=== PATIENT | male | born 1970 | race Caucasian/White ===

== ENCOUNTER → 2024-09-08 | Outpatient (CLI) | payer BC, SELFPAY ==
[2024-09-08 10:24] LABS: Basophils # (Auto) 0.1 Thou/mm3 (0.0-0.2); Basophils % (Auto) 1 % (0-2.5); Eosinophils # (Auto) 0.1 Thou/mm3 (0.0-0.5); Eosinophils % (Auto) 2 % (0-10); Hematocrit 42.4 % (41.0-53.0); Hemoglobin 15.3 g/dL (13.5-16.0); Immature Granulocytes % (Auto) 0 % (0-0); Immature Granulocytes Auto 0.02 Thou/mm3 (0.00-0.00); Lymphocytes # (Auto) 1.8 Thou/mm3 (1.0-4.8); Lymphocytes % (Auto) 26 % (10-50); Mean Corpuscular HGB Conc 36.1 g/dl (31.0-37.0); Mean Corpuscular Volume 86 fL (80-100); Monocytes # (Auto) 0.4 Thou/mm3 (0.0-0.8); Monocytes % (Auto) 6 % (0-12); Neutrophils # (Auto) 4.5 Thou/mm3 (1.8-7.7); Neutrophils % (Auto) 65 % (37-80); Nucleated Red Blood Cell % 0 /100 WBC (0); Platelet Count 241 Thou/mm3 (140-440); RDW Standard Deviation 36.9 fL (35.1-43.9); Red Blood Count 4.94 Miln/mm3 (4.50-5.90); White Blood Count 6.9 Thou/mm3 (3.8-10.6)
[2024-09-08 10:58] LABS: PSA Medicare Annual Scrn 0.55 ng/mL (0-4.00)
[2024-09-08 11:54] LABS: Alanine Aminotransferase 33 U/L (10-49); Albumin, Serum 4.7 gm/dL (3.5-5.0); Albumin/Globulin Ratio 1.9 (1.2-2.2); Alkaline Phosphatase 127 U/L (46-116); Anion Gap 12 (7-16); Aspartate Amino Transferase 10 U/L (0-34); BUN/Creatinine Ratio 17 Ratio (12-20); Bilirubin,Total 1.3 mg/dL (0.3-1.2); Blood Urea Nitrogen 24 mg/dL (9-23); Calcium 10.3 mg/dL (8.3-10.6); Calcium (Corrected) 10.3 mg/dL (8.5-10.1); Carbon Dioxide 28.2 mMol/L (20.0-31.0); Cardiac Risk Estimate 4.4 RATIO (4.0-6.7); Chloride 93 mMol/L (98-107); Cholesterol 202 mg/dL (132-200); Creatinine (Component) 1.4 mg/dL (0.6-1.3); Globulin 2.5 gm/dL (2.3-3.5); HDL Cholesterol 46 mg/dL (40-60); Osmolality,Calculated 288 (275-295); Potassium 3.4 mMol/L (3.4-5.1); Sodium 133 mMol/L (136-145); Thyroid Stimulating Hormone 2.23 uIU/mL (0.55-4.78); Total Protein 7.2 gm/dL (5.7-8.2); Triglycerides 443 mg/dL (30-150); eGFR 60 See Note
[2024-09-08 12:07] LABS: Glucose 428 mg/dL (74-106)
[2024-09-09 09:56] LABS: Misc Send Out* See Sep Rpt
== END | disposition home or self-care (01) ==
LOC: COPL 09:25
PROVIDERS: PCP Family Medicine; Referring Provider Nurse Practitioner Family; Visit Provider Nurse Practitioner Family
DX: I10 Essential (primary) hypertension (principal); E78.5 Hyperlipidemia, unspecified; R73.03 Prediabetes; Z12.5 Encounter for screening for malignant neoplasm of prostate
CPT/HCPCS: 36415; 80053; 80061; 83036; 84153; 84443; 85025; G0103

== ENCOUNTER → 2024-09-10 | Outpatient (CLI) | payer BC, SELFPAY ==
[2024-09-10 11:36] LABS: Misc Send Out* See Sep Rpt
[2024-09-10 12:35] LABS: Vitamin D 25 Hydroxy Total 19.6 ng/mL (7.3-40.2)
[2024-09-10 12:43] LABS: Collection Type, Urine Clean Catch; Squamous Epithelial Cell,Urine 0 /hpf (0-5)
[2024-09-10 12:56] LABS: Alanine Aminotransferase 35 U/L (10-49); Albumin, Serum 4.7 gm/dL (3.5-5.0); Alkaline Phosphatase 127 U/L (46-116); Anion Gap 10 (7-16); Aspartate Amino Transferase 15 U/L (0-34); BUN/Creatinine Ratio 13 Ratio (12-20); Bilirubin,Total 1.1 mg/dL (0.3-1.2); Blood Urea Nitrogen 17 mg/dL (9-23); Calcium 9.7 mg/dL (8.3-10.6); Calcium (Corrected) 9.7 mg/dL (8.5-10.1); Carbon Dioxide 28.9 mMol/L (20.0-31.0); Chloride 93 mMol/L (98-107); Creatinine (Component) 1.3 mg/dL (0.6-1.3); Globulin 2.4 gm/dL (2.3-3.5); Magnesium 2.3 mg/dL (1.6-2.6); Osmolality,Calculated 285 (275-295); Potassium 3.3 mMol/L (3.4-5.1); Sodium 132 mMol/L (136-145); Total Protein 7.1 gm/dL (5.7-8.2); eGFR > 60 See Note
[2024-09-10 12:59] LABS: Glucose 438 mg/dL (74-106)
[2024-09-10 13:36] LABS: Bilirubin,Urine Negative (Negative); Blood,Urine Negative (Negative); Clarity,Urine Clear (Clear/Hazy); Color,Urine Lt-Yellow (Lt Yel-Yel); Glucose, Urine 4+ (Negative); Ketones,Urine Negative (Negative); Leukocyte Esterase,Urine Negative (Negative); Nitrite,Urine Negative (Negative); Protein,Urine Negative (Neg - Trace); RBC,Urine 3 /hpf (0-3); Specific Gravity,Urine 1.037 (1.001-1.035); Urobilinogen,Urine Negative mg/dL (0.0-1.0); WBC,Urine 1 /hpf (0-5)
[2024-09-10 13:50] LABS: Creatinine MALB Rnd Ur 60 mg/dL (30-125); Microalbumin, Random Urine < 3 mg/L (0-300)
[2024-09-11 07:54] LABS: Misc Send Out* See Sep Rpt
== END | disposition home or self-care (01) ==
LOC: COPL 11:02
PROVIDERS: PCP Family Medicine; Referring Provider Nurse Practitioner Family; Visit Provider Nurse Practitioner Family
DX: I10 Essential (primary) hypertension (principal); E11.9 Type 2 diabetes mellitus without complications; R79.9 Abnormal finding of blood chemistry, unspecified
CPT/HCPCS: 36415; 80053; 81001; 82043; 82306; 82570; 83036; 83735; 84255; 84590

== ENCOUNTER → 2024-09-14 | Outpatient (CLI) | payer BC, SELFPAY | END | disposition home or self-care (01) | LOC: COPL 09:23 | PROVIDERS: PCP Family Medicine; Referring Provider Nurse Practitioner Family; Visit Provider Nurse Practitioner Family | DX: I10 Essential (primary) hypertension (principal); R73.03 Prediabetes | CPT/HCPCS: 36415; 83036 ==

== ENCOUNTER → 2024-10-19 | Outpatient (CLI) | payer BC, SELFPAY ==
[2024-10-19 10:54] LABS: Glucose Estimated Average 260 mg/dL (80-131); Hemoglobin A1C 10.7 % Hgb (4.8-6.0)
[2024-10-19 11:06] LABS: Alanine Aminotransferase 39 U/L (10-49); Albumin/Globulin Ratio 1.9 (1.2-2.2); Alkaline Phosphatase 87 U/L (46-116); Anion Gap 11 (7-16); Aspartate Amino Transferase 39 U/L (0-34); BUN/Creatinine Ratio 29 Ratio (12-20); Bilirubin,Total 1.2 mg/dL (0.3-1.2); Blood Urea Nitrogen 46 mg/dL (9-23); Calcium 10.6 mg/dL (8.3-10.6); Calcium (Corrected) 10.6 mg/dL (8.5-10.1); Carbon Dioxide 26.8 mMol/L (20.0-31.0); Chloride 101 mMol/L (98-107); Creatinine (Component) 1.6 mg/dL (0.6-1.3); Globulin 2.6 gm/dL (2.3-3.5); Glucose 108 mg/dL (74-106); Osmolality,Calculated 290 (275-295); Potassium 4.1 mMol/L (3.4-5.1); Sodium 139 mMol/L (136-145); Total Protein 7.6 gm/dL (5.7-8.2); eGFR 51 See Note
[2024-10-19 11:12] LABS: Creatinine MALB Rnd Ur 157 mg/dL (30-125); Microalbumin Creat Ratio 2 mg/gCrea (<30); Microalbumin, Random Urine 3 mg/L (0-300)
== END | disposition home or self-care (01) ==
LOC: COPL 09:25
PROVIDERS: PCP Nurse Practitioner Family; Referring Provider Nurse Practitioner Family; Visit Provider Nurse Practitioner Family
DX: E11.9 Type 2 diabetes mellitus without complications (principal); I10 Essential (primary) hypertension
CPT/HCPCS: 36415; 80053; 82043; 82570; 83036

== ENCOUNTER 2024-10-24 15:40 | Inpatient (IN) | payer BC, SELFPAY ==
[2024-10-24] VITALS (9 sets, daily range): BP systolic 87–158; BP diastolic 53–95; PULSE 71–98; RESP 12–22; TEMP 36.6–36.8; O2SAT 97–100; BMI 50.3
--- NOTE | 2024-10-24 16:07 | EKG_ITS ---
[facility] Test Date: 2024-10-24 Pat Name: PORSCHE ANTHONY Department: Room: - Gender: Male Orientor: : 1970 Requested By: Jack Mobley (NAOMI) Order Number: [id number] Reading MD: Jack Mobley (DOBIE MAN) Measurements Intervals [place] Rate: 79 P: 37 KS: 165 QRS: 13 QRSD: 93 T: 20 QT: 373 QTc: 428 Interpretive Statements SINUS RHYTHM No previous ECG available for comparison /store/S0/[id number]/ecg/[id number].pdf
[2024-10-24] MEDS: SODIUM CHLORIDE 0.9% 1000 ML 1,000 ML 999 ML IV ×2 (16:28→17:40)
[2024-10-24 16:31] LABS: Basophils # (Auto) 0.1 Thou/mm3 (0.0-0.2); Basophils % (Auto) 1 % (0-2.5); Eosinophils % (Auto) 0 % (0-10); Hematocrit 35.5 % (41.0-53.0); Hemoglobin 12.8 g/dL (13.5-16.0); Immature Granulocytes % (Auto) 1 % (0-0); Immature Granulocytes Auto 0.06 Thou/mm3 (0.00-0.00); Lymphocytes # (Auto) 1.4 Thou/mm3 (1.0-4.8); Lymphocytes % (Auto) 13 % (10-50); Mean Corpuscular HGB Conc 36.1 g/dl (31.0-37.0); Mean Corpuscular Hemoglobin 30.8 pg (25.0-35.0); Mean Corpuscular Volume 85 fL (80-100); Monocytes # (Auto) 0.9 Thou/mm3 (0.0-0.8); Monocytes % (Auto) 8 % (0-12); Neutrophils # (Auto) 8.4 Thou/mm3 (1.8-7.7); Neutrophils % (Auto) 78 % (37-80); Nucleated Red Blood Cell % 0 /100 WBC (0); Platelet Count 279 Thou/mm3 (140-440); RDW Standard Deviation 39.8 fL (35.1-43.9); Red Blood Count 4.16 Miln/mm3 (4.50-5.90); White Blood Count 10.8 Thou/mm3 (3.8-10.6)
[2024-10-24 16:43] LABS: INR 1.1 (0.9-1.3); Partial Thromboplastin Time 26.2 Seconds (22.0-36.0); Prothrombin Time 12.1 Seconds (9.0-12.2)
[2024-10-24 16:47] LABS: Alanine Aminotransferase 36 U/L (10-49); Albumin, Serum 5.1 gm/dL (3.5-5.0); Albumin/Globulin Ratio 1.7 (1.2-2.2); Alkaline Phosphatase 82 U/L (46-116); Anion Gap 14 (7-16); Aspartate Amino Transferase 29 U/L (0-34); BUN/Creatinine Ratio 13 Ratio (12-20); Blood Urea Nitrogen 69 mg/dL (9-23); Calcium 10.7 mg/dL (8.3-10.6); Calcium (Corrected) 10.7 mg/dL (8.5-10.1); Chloride 100 mMol/L (98-107); Creatinine (Component) 5.2 mg/dL (0.6-1.3); Estimated Creatinine Clearance 22.5 mL/min (>60); Glucose 123 mg/dL (74-106); Magnesium 1.9 mg/dL (1.6-2.6); Osmolality,Calculated 294 (275-295); Potassium 3.6 mMol/L (3.4-5.1); Sodium 137 mMol/L (136-145); Total Protein 8.1 gm/dL (5.7-8.2); Troponin I < 0.020 ng/mL (0.0-0.045); eGFR 12 See Note
[2024-10-24 17:09] LABS: B-Type Natriuretic Peptide < 20 pg/mL (0-100)
--- NOTE | 2024-10-24 17:24 | XR_ITS ---
Examination: CT brain head without contrast. 2-D sagittal coronal reconstructions Date and time of exam:October at 02 hours Indications: Altered mental status headache today CTDI: vol (mGy):63.1 DLP: (mGycm):1398 Technique: Multiple CT axial sections of the brain have been obtained, 5 mm slice thickness. Contrast has not been administered. 2-D sagittal, coronal reconstructions have been obtained Low dose protocols were performed. One or more of the following dose reduction techniques were used; automated exposure control, adjustment of the mA and/or KV according to patient size, use of iterative reconstruction technique. Findings: No significant ventricular enlargement. Bilateral chronic subdural hygromas, slightly greater on the left side Intra-axial or extra-axial hemorrhage density is not seen. No mass effect or midline shift Basal cisterns are not remarkable. Fourth ventricle is midline. Cranial vault intact. Impression: Bilateral chronic subdural hygromas with no mass effect Negative for acute hemorrhage or midline shift
--- NOTE | 2024-10-24 17:26 | PD.RESEVENT ---
Documentation for date of: 10/24/24 Event Note Event Note: Patient is a 53-year-old male, who presented to the ER with a chief complaint of syncope, Initially hypotensive on arrival blood pressure 89/58, noted to have JEREMÍAS, serum creatinine 5.2, rest of the labs are unremarkable, EKG is normal sinus rhythm, spoke to ER provider Dr. Ruiz, recommended getting a CT head due to history of syncope, will notify the night team to follow-up with CT head, and reevaluate the patient if suitable for admission. Plan of care discussed in attending Dr. Yoli West, pgy 2
--- NOTE | 2024-10-24 17:27 | PD.EDWEAK ---
ED Weakness RME/HPI General Chief complaint: Weakness Stated complaint: WEAKNESS Time Seen by Provider: 10/24/24 16:19 Arrival date/time: 10/24/24 15:40 RME / HPI RME / HPI Narrative: DR. PARRY MAIN ED EVALUATION: Related Data Home Medications ?Medication ?Instructions ?Recorded ?Confirmed clonidine HCl 0.2 mg tablet 0.2 mg PO BID #0 tabs 12/02/15 06/03/24 (Catapres) hydrochlorothiazide 25 mg tablet 25 mg PO QAM #0 tabs 12/02/15 06/03/24 metoprolol tartrate 50 mg tablet 50 mg PO HS #0 tabs 12/02/15 06/03/24 atorvastatin 40 mg tablet 40 mg PO QDAY 10/17/23 06/03/24 Allergies Allergy/AdvReac Type Severity Reaction Status Date / Time No Known Allergies Allergy Verified 10/24/24 15:42 Course Orders Category Date Time Status COVID-19 Screening Questionnaire NOW Care 10/24/24 17:26 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 Care 10/24/24 16:07 Active Decision to Admit X1 Care 10/24/24 17:26 Active EKG (ED ONLY) *Do not use* NOW Care 10/24/24 16:07 Completed Insert IV NOW Care 10/24/24 16:[address] head/brain wo con Stat Exams 10/24/24 17:24 Ordered EKG (ED Only) Stat Exams 10/24/24 16:07 Draft B-Type Natriuretic Peptide Stat Lab 10/24/24 16:22 Completed CBC Stat Lab 10/24/24 16:22 Completed Comprehensive Metabolic Panel Stat Lab 10/24/24 16:22 Completed Drug Screen,Urine Stat Lab 10/24/24 16:07 Ordered Magnesium Stat Lab 10/24/24 16:22 Completed Partial Thromboplastin Time Stat Lab 10/24/24 16:22 Completed Prothrombin Time with INR Stat Lab 10/24/24 16:22 Completed Troponin I Stat Lab 10/24/24 16:22 Completed Type and Screen Stat Lab 10/24/24 16:22 Results Urinalysis Stat Lab 10/24/24 16:07 Ordered Sodium Chloride 0.9% 1000 ml [Ns] 1,000 ml Med 10/24/24 16:25 Discontinued IV 999 mls/hr Sodium Chloride 0.9% 1000 ml [Ns] 1,000 ml Med 10/24/24 17:09 Active IV 999 mls/hr Vital Signs Vital signs: Vital Signs Temperature 97.8 F 10/24/24 16:05 Pulse Rate 71 10/24/24 16:05 Respiratory Rate 18 10/24/24 16:05 Blood Pressure 87/58 L 10/24/24 16:05 Pulse Oximetry (%) 97 10/24/24 16:05 Oxygen Delivery Method Room Air 10/24/24 16:05 Weakness MDM Narrative MDM Narrative:: IRegina am scribing for and in the presence of Dr. Parry. Evaluation data The following diagnostics were reviewed and interpreted by me:: lab results, radiology exam(s) and EKG tracing(s) (EKG done at 1650 hours: sinus rhythm, rate 79, no STEMI) Medications / Prescriptions Medications or Prescriptions considered but not ordered:: none Medication administrations:: Medication Administration History Sodium Chloride (Ns) 1,000 mls @ 999 mls/hr IV .Q1H1M ONE Stop: 10/24/24 18:09 Discontinued Medications Sodium Chloride (Ns) 1,000 mls @ 999 mls/hr IV .Q1H1M ONE Stop: 10/24/24 17:25 Last Admin: 10/24/24 16:28 Dose: 999 mls/hr Documented By: DB Discharge Plan Prescriptions/Referrals Prescriptions/Med Rec: No Action atorvastatin 40 mg tablet 40 mg PO QDAY clonidine HCl [Catapres] 0.2 MG tablet 0.2 mg PO BID Qty: 0 metoprolol tartrate 50 MG tablet 50 mg PO HS Qty: 0 hydrochlorothiazide 25 MG tablet 25 mg PO QAM Qty: 0 Referrals: Edgar Benoit MD [Primary Care Provider] - In 1 week Problem List Clinical Impression: Dehydration, Acute kidney injury Patient/Caregiver Discharge Instructions Print Language: Turkish
--- NOTE | 2024-10-24 17:38 | PD.EDWEAK ---
ED Weakness RME/HPI General Chief complaint: Weakness Stated complaint: WEAKNESS Time Seen by Provider: 10/24/24 16:19 Arrival date/time: 10/24/24 15:40 RME / HPI RME / HPI Narrative: DR. PARRY MAIN ED EVALUATION: 53 year old male with past medical history significant for hypertension, hypercholesterolemia, sleep apnea uses CPAP, diabetes presents to the Emergency Department with complaint of generalized weakness. Symptoms are moderate. Patient states that yesterday he had a syncopal episode. Denies any injuries or other symptoms at this time. Related Data Home Medications ?Medication ?Instructions ?Recorded ?Confirmed hydrochlorothiazide 25 mg tablet 25 mg PO QAM #0 tabs 12/02/15 10/24/24 metoprolol tartrate 50 mg tablet 50 mg PO HS #0 tabs 12/02/15 10/24/24 atorvastatin 40 mg tablet 40 mg PO QDAY 10/17/23 10/24/24 clonidine HCl 0.3 mg tablet 0.3 mg PO TID 10/24/24 10/24/24 dapagliflozin propanediol 10 mg 10 mg PO QDAY 10/24/24 10/24/24 tablet (Farxiga) metformin 750 mg tablet,extended 750 mg PO BID 10/24/24 10/24/24 release 24 hr semaglutide 0.25 mg or 0.5 mg (2 0.25 mg subcut QWEEK 10/24/24 10/24/24 mg/3 mL) subcutaneous pen injector (Ozempic) valsartan 320 1 tab PO QDAY 10/24/24 10/24/24 mg-hydrochlorothiazide 25 mg tablet Allergies Allergy/AdvReac Type Severity Reaction Status Date / Time No Known Allergies Allergy Verified 10/24/24 15:42 Review of Systems Review of Systems Systems Reviewed: All systems reviewed, normal except as documented Narrative Review of Systems: GEN: No fever, no chills, no weight loss EYES: No discharge, no visual changes, no pain HEENT: No ear pain, no congestion, no sore throat PULM: No shortness of breath, no cough, no congestion CV: No chest pain, no dyspnea on exertion, no palpitations GI: No nausea, no vomiting, no diarrhea, no pain, no constipation : No frequency, no urgency and no dysuria MUSC/SKEL: No joint pain, no back pain SKIN: No rash PSYCH: No hallucinations, no depression HEME/LYMPH: No easy bleeding or bruising tendencies NEURO: + generalized weakness, no headache, + syncopal episode yesterday Past Medical History Past Medical History CARDIAC: Positive Cardiac Disorders, Hypercholesterolemia and Hypertension RESPIRATORY: Positive Sleep Apnea (uses cpap) and Smoking Exposure GASTROINTESTINAL: Positive Gastrointestinal Disorders and Obesity ENDOCRINE: Positive Diabetes Mellitus Type 2 Social History SMOKING STATUS: Never smoker SECOND HAND EXPOSURE: Yes SUBSTANCE USE: does not use ALCOHOL: Never ED Exam Narrative Physical exam: GENERAL APPEARANCE: alert and oriented x 4, well-developed, well-nourished, no acute distress VITALS: All vitals were reviewed and the pulse ox is 100% on room air, which is normal according to my interpretation. HEENT: Normocephalic, atraumatic; pupils equal, round, reactive to light; EOMI; mucous membranes pink, moist; oropharynx clear NECK: Supple LUNGS: CTABL; no wheezes, no rales, no rhonchi HEART: Regular rate, regular rhythm; normal S1, S2; no murmurs ABDOMEN: non distended; normal BS; soft, no tenderness, no guarding, no rebound; no masses, no organomegaly, no hernia BACK: no CVA tenderness EXTREMITIES: atraumatic; no edema NEUROLOGIC: awake; alert and oriented x4; cranial nerves II-XII grossly intact; no focal sensory or motor deficits PSYCHIATRIC: appropriate mood and affect SKIN: warm, dry, normal color; no rashes Course Quality Measures none Orders Category Date Time Status COVID-19 Screening Questionnaire NOW Care 10/24/24 17:26 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 NOW Care 10/24/24 16:07 Active Decision to Admit X1 Care 10/24/24 17:26 Completed EKG (ED ONLY) *Do not use* NOW Care 10/24/24 16:07 Completed Insert IV NOW Care 10/24/24 16:[address] head/brain wo con Stat Exams 10/24/24 17:24 Completed EKG (ED Only) Stat Exams 10/24/24 16:07 Draft B-Type Natriuretic Peptide Stat Lab 10/24/24 16:22 Completed CBC Stat Lab 10/24/24 16:22 Completed Comprehensive Metabolic Panel Stat Lab 10/24/24 16:22 Completed Drug Screen,Urine Stat Lab 10/24/24 21:20 Completed Magnesium Stat Lab 10/24/24 16:22 Completed Partial Thromboplastin Time Stat Lab 10/24/24 16:22 Completed Prothrombin Time with INR Stat Lab 10/24/24 16:22 Completed Troponin I Stat Lab 10/24/24 16:22 Completed Type and Screen Stat Lab 10/24/24 16:22 Completed Urinalysis Stat Lab 10/24/24 21:20 Completed Sodium Chloride 0.9% 1000 ml [Ns] 1,000 ml Med 10/24/24 16:25 Discontinued IV 999 mls/hr Sodium Chloride 0.9% 1000 ml [Ns] 1,000 ml Med 10/24/24 17:09 Discontinued IV 999 mls/hr Vital Signs Vital signs: Vital Signs Temperature 97.8 F 10/24/24 16:05 Pulse Rate 71 10/24/24 16:05 Respiratory Rate 18 10/24/24 16:05 Blood Pressure 87/58 L 10/24/24 16:05 Pulse Oximetry (%) 97 10/24/24 16:05 Oxygen Delivery Method Room Air 10/24/24 16:05 Weakness MDM Narrative MDM Narrative:: IRegina am scribing for and in the presence of Dr. Parry. Patient data External records reviewed:: [facility] previous records (Reviewed General Surgery note by Ash, dated 06/03/24.) Clinical information provided by:: patient Social determinants that could affect healthcare access:: none Patient has the following chronic illnesses:: Hypertension, hypercholesterolemia, sleep apnea uses CPAP, diabetes. How is presenting disease/condition affected by chronic disease/condition?: exacerbated by Evaluation data The following diagnostics were reviewed and interpreted by me:: lab results, radiology exam(s) and EKG tracing(s) (EKG done at 1650 hours: sinus rhythm, rate 79, no STEMI) Lab and/or radiology exams considered but not ordered:: none Interpretation Summary: creatine 5.2 eGFR 12 RADIOLOGY Procedure(s): CT head/brain wo con Accession Number(s): [id number] cc: Grayson Roca MD; Tita Parry MD; Edgar Benoit MD~ Examination: CT brain head without contrast. 2-D sagittal coronal reconstructions Date and time of exam:October at 02 hours Indications: Altered mental status headache today CTDI: vol (mGy):63.1 DLP: (mGycm):1398 Technique: Multiple CT axial sections of the brain have been obtained, 5 mm slice thickness. Contrast has not been administered. 2-D sagittal, coronal reconstructions have been obtained Low dose protocols were performed. One or more of the following dose reduction techniques were used; automated exposure control, adjustment of the mA and/or KV according to patient size, use of iterative reconstruction technique. Findings: No significant ventricular enlargement. Bilateral chronic subdural hygromas, slightly greater on the left side Intra-axial or extra-axial hemorrhage density is not seen. No mass effect or midline shift Basal cisterns are not remarkable. Fourth ventricle is midline. Cranial vault intact. Impression: Bilateral chronic subdural hygromas with no mass effect Negative for acute hemorrhage or midline shift Dictated By: Grayson Roca MD Medications / Prescriptions Medications or Prescriptions considered but not ordered:: none Medication administrations:: Medication Administration History Acetaminophen (Acetaminophen 325 Mg Tablet) 650 mg PO Q6H PRN PRN Reason: Fever >101.5 Stop: 11/23/24 19:52 Atorvastatin Calcium (Atorvastatin Calcium 20 Mg Tablet) 40 mg PO HS KEVIN Stop: 11/24/24 20:59 Dextrose (Dextrose 50%-Water Inj 50 Ml Syringe) 25 ml IV Q15MIN PRN PRN Reason: BG 50-70 responsive npo pt Stop: 11/23/24 19:56 Dextrose (Dextrose 50%-Water Inj 50 Ml Syringe) 50 ml IV Q15MIN PRN PRN Reason: BG <50 OR BG <70 & pt unresponsive Stop: 11/23/24 19:56 Glucagon (Glucagon Inj 1 Mg Vial) 1 mg IM Q15MIN PRN PRN Reason: BG <70, and no IV access Insulin Human Lispro (Insulin Lispro (Admelog) 1 Unit/0.01 Ml Unit) 0 unit SC ACHS KEVIN; Protocol Stop: 11/23/24 20:59 Last Admin: 10/24/24 21:23 Dose: Not Given Documented By: EF Non-Admin Reason: Per Protocol Ondansetron HCl (Ondansetron Inj 2 Mg/Ml Inj 2 Ml) 4 mg IV Q6H PRN; Protocol PRN Reason: NAUSEA OR VOMITING Stop: 11/23/24 19:52 Discontinued Medications Sodium Chloride (Ns) 1,000 mls @ 999 mls/hr IV .Q1H1M ONE Stop: 10/24/24 17:25 Last Infusion: 10/24/24 17:37 Dose: Infused Documented By: Admin: 10/24/24 16:28 Dose: 999 mls/hr Documented By: DB Sodium Chloride (Ns) 1,000 mls @ 999 mls/hr IV .Q1H1M ONE Stop: 10/24/24 18:09 Last Infusion: 10/24/24 18:50 Dose: Infused Documented By: Admin: 10/24/24 17:40 Dose: 999 mls/hr Documented By: DB Sodium Chloride (Ns) 1,000 mls @ 125 mls/hr IV .Q8H ONE Stop: 10/25/24 03:57 Last Admin: 10/24/24 20:18 Dose: 125 mls/hr Documented By: EF see above Consultations Consultation(s) initiated? (list below): Yes Consultation #1 (Physician, Specialty, Details): Discussed test HPI, PMHx, lab, radiology results and/or management with hospitalist. Will admit for further evaluation and management. Accepts patient for admission. Time: 17:30 Diagnosis Weakness Differential Diagnosis: anemia, hypoglycemia, sepsis, dehydration and other (dehydration, kidney disease) Most likely diagnosis given after review of the tests above:: As noted below. Admission Indicated Admission indicated?: indicated Admission Request Was there a request for admission?: Yes Admission Attestation Admission request attestation: Discussed case with [] from Hospitalist service regarding admission. Discussed patients ED course, exam findings, labs, and radiology results. The Hospitalist [agrees,declines] to accept the patient for admission. Disposition Plan Disposition Plan: Admit Discharge Plan Plan Patient Disposition: Admit Acute Care w/in Hospital Problem List Clinical Impression: Dehydration, Acute kidney injury
--- NOTE | 2024-10-24 19:18 | PC.NURSE ---
patient states he fell yesterday morning and today around 2pm while he was playing drums under the sun he started feeling light headed and developed blurry vision and decided to come in. patient is GCS 15 with at bedside
--- NOTE | 2024-10-24 19:30 | PC.NURSE ---
dr ji at bedside
--- NOTE | 2024-10-24 20:00 | ECHO_ITS ---
Transthoracic Echo Report Ht (in): 67 Wt (lb): 321 Exam Location: Portable Status: Emergency Head Transfer Clerk: Gema Devine Indications: Procedure Performed: BP: 145 / 92 HR: 82 Rhythm: Sinus Technical Quality: Technically difficult study MEASUREMENTS (Male / Female) Normal Values 2D ECHO LV Diastolic Diameter PLAX 4.8 cm 4.2 - 5.9 / 3.9 - 5.3 cm LV Systolic Diameter PLAX 3.4 cm IVS Diastolic Thickness 1.1 cm 0.6 - 1.0 / 0.6 - 0.9 cm LVPW Diastolic Thickness 1.1 cm 0.6 - 1.0 / 0.6 - 0.9 cm LV Relative Wall Thickness 0.5 LVOT Diameter 2.1 cm LA Volume Index 19.5 cm?/m? 16 - 28 cm?/m? Ascending Aorta Diameter 3.5 cm M-MODE Aortic Root Diameter MM 3.2 cm LA Systolic Diameter MM 5.0 cm LA Ao Ratio MM 1.6 AV Cusp Separation MM 2.3 cm DOPPLER MV Peak Velocity 97.6 cm/s MV Peak Gradient 3.8 mmHg MV Mean Velocity 72.3 cm/s MV Mean Gradient 2.0 mmHg MV Area PHT 3.6 cm? Mitral E Point Velocity 97.5 cm/s Mitral A Point Velocity 88.3 cm/s Mitral E to A Ratio 1.1 LV E' Lateral Velocity 18.8 cm/s Mitral E to LV E' Lateral Ratio 5.2 LV E' Septal Velocity 6.9 cm/s Mitral E to LV E' Septal Ratio 14.2 FINDINGS Left Ventricle Normal left ventricular size, wall thickness, systolic function with no obvious regional wall motion abnormalities. The ejection fraction is visually estimated at 55-60%. Right Ventricle The right ventricle is normal in size and systolic function. Left Atrium The left atrium is normal by two-dimensional, color flow and Doppler imaging with no structural abnormalities, no thrombus formation present. Right Atrium The right atrium is normal by two-dimensional imaging, color flow and Doppler imaging with no struct ural abnormalities, no thrombus formation present. Atrial Septum The interatrial septum appears normal with no evidence of a shunt. Aorta The aorta is normal by two-dimensional, color flow and Doppler interrogation. Mitral Valve The mitral valve is normal by two-dimensional, color flow and Doppler interrogation. There is trace mitral valve regurgitation. Aortic Valve The aortic valve is trileaflet and normal by two-dimensional, color flow and Doppler interrogation. There is no significant aortic valve regurgitation. Tricuspid Valve The tricuspid valve is normal by two-dimensional, color flow and Doppler interrogation. There is no significant tricuspid valve regurgitation. Pulmonic Valve There is no significant pulmonic valve regurgitation. Vessels The pulmonary artery appears normal. The inferior vena cava pulmonary and hepatic veins appear raymond l. Pericardium The pericardium is normal by two-dimensional imaging. There is no significant pericardial effusion. CONCLUSIONS Normal LV size and function. Estimated EF 55-60% Normal RV size and function Trace MR. Adam Sierra (Electronically Signed) Final Date: 26 October 2024 13:23
[2024-10-24] MEDS: SODIUM CHLORIDE 0.9% 1000 ML 1,000 ML 125 ML IV (20:18)
--- NOTE | 2024-10-24 20:30 | ESHP_ITS ---
Documentation for date of: 10/24/24 [facility] History of Present Illness Chief complaint: Syncope History of present illness: A 53-year-old male with a past medical history of morbid obesity, hypertension, diabetes mellitus, hyperlipidemia, obstructive sleep apnea using CPAP at home presented to the hospital with chief complaints of generalized weakness and syncopal episodes since 5 weeks. Patient was recently started on Ozempic for the weight loss and also started on insulin following which patient had hypoglycemic episodes and eventually insulin was stopped after 1 dose. Since then patient is having decreased appetite and feeling nauseous. He endorsed that he is eating little due to decreased appetite. Since last week, patient noticed darkish discoloration of urine. On the day before admission, patient got up from bed and took a couple of steps following which he felt blackening out and sustained a fall without any abnormal movements, tongue bite, bowel or bladder incontinence. Patient regained consciousness within few seconds. Denies trauma to the head, back. On the day of admission, patient was sitting playing drums outside in the sun and noted sudden onset of blackening out and did not lose any consciousness. Later he tried to get in the car and drive to the hospital which he was unsuccessful and called his , came to the hospital. Denies chest pain, shortness of breath, palpitation, burning micturition, abdominal pain, fever. ED Course: -Initial vitals were blood pressure 87/58 mmHg, pulse rate 71 bpm, respiratory rate 18/min, temperature 97.8 ?F, SpO2 97% with room air -Labs significant for WBC 10.8, Hb 12.8, BUN 69, creatinine 5.2, glucose 123. Urine analysis tested positive for 1+ proteinuria, 3+ glucosuria. Urine toxicology tested negative -EKG showed normal sinus rhythm. Head CT is negative for acute hemorrhage/mass effect/midline affect. -In the ED, patient was given 2 L of NS bolus -Patient was admitted for acute kidney injury and syncopal episode. 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 HEENT: Normocephalic, atraumatic, mucous membranes moist. Heart: Regular rate and rhythm, no murmurs. Lungs: Clear to auscultation with no wheezing or crackles. Abdomen: Soft, nondistended, nontender, positive bowel sounds. ?No guarding or rebound tenderness. Neurologic: Alert and oriented x3, no gross neurological deficit, and patient able to move all 4 extremities. Extremities: No edema. Skin: No rash or ecchymoses. Results: Labs 10/24/24 16:22 10/24/24 16:22 Labs: Short CBC 10/24/24 Range/Units 16:22 WBC 10.8 H (3.8-10.6) Thou/mm3 Hgb 12.8 L (13.5-16.0) g/dL Hct 35.5 L (41.0-53.0) % Plt Count 279 (140-440) Thou/mm3 BMP 10/24/24 16:22 Sodium 137 Potassium 3.6 Chloride 100 Carbon Dioxide 23.0 BUN 69 H Creatinine 5.2 H* D Glucose 123 H Calcium 10.7 H Cardiac Enzymes 10/24/24 Range/Units 16:22 Troponin I < 0.020 (0.0-0.045) ng/mL Liver Function 10/24/24 Range/Units 16:22 Total Bilirubin 1.0 (0.3-1.2) mg/dL AST 29 (0-34) U/L ALT 36 (10-49) U/L Alkaline Phosphatase 82 (46-116) U/L Albumin 5.1 H (3.5-5.0) gm/dL Quality Measures Quality Measures none Medications Home Medications and Allergies Home Medications ?Medication ?Instructions ?Recorded ?Confirmed ?Type hydrochlorothiazide 25 mg tablet 25 mg PO QAM #0 tabs 12/02/15 10/24/24 History metoprolol tartrate 50 mg tablet 50 mg PO HS #0 tabs 12/02/15 10/24/24 History atorvastatin 40 mg tablet 40 mg PO QDAY 10/17/23 10/24/24 History clonidine HCl 0.3 mg tablet 0.3 mg PO TID 10/24/24 10/24/24 History dapagliflozin propanediol 10 mg 10 mg PO QDAY 10/24/24 10/24/24 History tablet (Farxiga) metformin 750 mg tablet,extended 750 mg PO BID 10/24/24 10/24/24 History release 24 hr semaglutide 0.25 mg or 0.5 mg (2 0.25 mg subcut QWEEK 10/24/24 10/24/24 History mg/3 mL) subcutaneous pen injector (Ozempic) valsartan 320 1 tab PO QDAY 10/24/24 10/24/24 History mg-hydrochlorothiazide 25 mg tablet Allergies Allergy/AdvReac Type Severity Reaction Status Date / Time No Known Allergies Allergy Verified 10/24/24 15:42 Visit Medications Acetaminophen (Acetaminophen 325 Mg Tablet) 650 mg PO Q6H PRN PRN Reason: Fever >101.5 Stop: 11/23/24 19:52 Dextrose (Dextrose 50%-Water Inj 50 Ml Syringe) 25 ml IV Q15MIN PRN PRN Reason: BG 50-70 responsive npo pt Stop: 11/23/24 19:56 Dextrose (Dextrose 50%-Water Inj 50 Ml Syringe) 50 ml IV Q15MIN PRN PRN Reason: BG <50 OR BG <70 & pt unresponsive Stop: 11/23/24 19:56 Glucagon (Glucagon Inj 1 Mg Vial) 1 mg IM Q15MIN PRN PRN Reason: BG <70, and no IV access Sodium Chloride (Ns) 1,000 mls @ 125 mls/hr IV .Q8H ONE Stop: 10/25/24 03:57 Last Admin: 10/24/24 20:18 Dose: 125 mls/hr Insulin Human Lispro (Insulin Lispro (Admelog) 1 Unit/0.01 Ml Unit) 0 unit SC [facility]; Protocol Stop: 11/23/24 20:59 Ondansetron HCl (Ondansetron Inj 2 Mg/Ml Inj 2 Ml) 4 mg IV Q6H PRN; Protocol PRN Reason: NAUSEA OR VOMITING Stop: 11/23/24 19:52 Discontinued Medications Sodium Chloride (Ns) 1,000 mls @ 999 mls/hr IV .Q1H1M ONE Stop: 10/24/24 17:25 Last Infusion: 10/24/24 17:37 Dose: Infused Sodium Chloride (Ns) 1,000 mls @ 999 mls/hr IV .Q1H1M ONE Stop: 10/24/24 18:09 Last Infusion: 10/24/24 18:50 Dose: Infused Assessment & Plan Plan A 53-year-old male with a past medical history of morbid obesity, hypertension, diabetes mellitus, hyperlipidemia, obstructive sleep apnea using CPAP at home presented to the hospital with chief complaints of generalized weakness and syncopal episodes since 5 weeks and admitted for acute kidney injury and syncopal episodes. # Acute kidney injury on ?CKD, likely prerenal Likely in the setting of dehydration due to poor oral intake, due to decreased appetite from Ozempic and continued valsartan usage -Patient has risk factors of obesity, hypertension, diabetes mellitus, hyperlipidemia -Patient was recently started on Ozempic following which patient had decreased appetite and poor oral intake -Reported that he is having dark yellowish discoloration of urine and also noted decreased amount of urine in the last 2 days. -Denies [id number] medication use/herbal preparations. -Labs done at the admission showed BUN 69, creatinine 5.2 -Baseline creatinine is 1.3 on 09/14/2024, on 10/19/14 is 1.6 -2 L of IV NS bolus is given in the ED Plan -Started on IV fluids, NS at 125 mL/h -Encouraged to take plenty of oral fluids -Strict intake and output, every hourly -Urine sodium and creatinine is ordered -Renal ultrasound is ordered -Follow-up with renal functions -Held antihypertensive medications and ozempic for now -Avoid nephrotoxic medications and renally dose medications -Dr. Paniagua is consulted, pending recommendations. # Syncope Likely vasovagal in the setting of dehydration and JEREMÍAS -Patient denied chest pain, palpitations, shortness of breath -Had 2 episodes with each episode lasting for few seconds and without any trauma -Denies associated involuntary movements -CT head negative for hemorrhage/mass effect/midline affect -EKG showed normal sinus rhythm Plan -Orthostatic vitals are ordered -Echo is ordered -Placed on medtele # History of diabetes # Morbid obesity -Patient was initially started on insulin but as the patient had hypoglycemic episodes started on oral hypoglycemic agents -On dapagliflozin, metformin -In view of high BMI, 50.8 patient was started on Ozempic -A1c on 10/19/2024 is 10.7 Plan -Started on insulin sliding scale -Hypoglycemic protocol is placed # History of hypertension -Patient is using clonidine 0.3 Mg p.o. 3 times daily, metoprolol 50 Mg p.o. at bedtime, valsartan -Blood pressure at the time of admission is 87/58 mmHg -Continue to monitor blood pressures -Add medications accordingly # History of LADONNA -Patient is using CPAP at bedtime since 7 years -Resume his CPAP at night # History of hyperlipidemia -Patient is using atorvastatin 40 Mg p.o. daily at home -Lipid panel done on 09/29 showed triglycerides of 443 -Resumed his atorvastatin Hospital Maintenance: Dispo: medtele DVT ppx: SCD GI ppx: not needed Diet: Renal, low carb consistent IV lines: Peripheral Code status: Full Patient plan of care was discussed with the attending physician, Dr. Shahzad Gomez, PGY1 Attending Provider Attestation/Addendum I have examined the patient, reviewed labs and imaging findings, discussed the case with the resident(s), and reviewed entered orders. I agree with the plan of care as outlined in this note, with these additional summaries/recommendations: Patient is a 53-year-old male with a medical history of LADONNA on CPAP, primary hypertension, hyperlipidemia, and obesity who presents to [facility] emergency department on 10/24/2024 with chief complaint of syncopal episode after waking up and ambulating to bathroom. Home Medications: Metformin 750 Mg twice daily, clonidine 0.3 Mg 3 times daily, Farxiga 10 Mg daily, valsartan?hydrochlorothiazide 320-25 mg, Ozempic 0.25 mg weekly, metoprolol ER 50 mg daily, glipizide ER 10 mg daily #Syncope: #Dehydration Most likely secondary to orthostatic (postural) hypotension from severe dehydration secondary to medications versus less likely reflex syncope versus cardiac versus hypoglycemia Head CT wo: bilateral chronic subdural hygromas, negative for acute hemorrhage or midline shift or mass effect EKG: Sinus rhythm, rate 79, QTc 428, no axis deviation, no acute ST changes Plan: Most likelysecondary to dehydration from medications. Hold home hypoglycemics and antihypertensives. Status post 2 L in ED and start maintenance fluids. Order echocardiogram. Monitor for arrhythmia on telemetry. #Acute Kidney Injury Baseline Cr appears to be 1.0-1.3, On admission Cr 5.2 & BUN 69 Most likely secondary to prerenal azotemia in the setting of severe dehydration from medications Microalb/Cr ratio: 2 Consult nephrology, recommendations appreciated Plan: No need for emergent dialysis at this time. Status post 2 L fluid bolus in the ED and will start maintenance fluids. Hold nephrotoxic agents and renally dose medications. Monitor urine output closely. Repeat renal panel in AM. # Primary hypertension # Hypotension At home patient takes valsartan, hydrochlorothiazide, clonidine, and metoprolol Plan: Blood pressure soft on admission. Hold home antihypertensives for now and will reinstitute as tolerated. # Uncontrolled diabetes mellitus type 2 10/19/2024 A1c: 10.7% Counseled patient he will need yearly ophthalmology and podiatry exams Plan: Hold home hypoglycemics. Discussed with patient about discontinuing sulfonylurea completely. Start sensitive insulin sliding scale with Accu-Cheks. Target blood sugar of 140-180 while hospitalized. # Obstructive sleep apnea Plan: CPAP as tolerated. Dr. Pike
[2024-10-24 21:25] LABS: Collection Type, Urine Clean Catch
[2024-10-24 21:26] LABS: WBC,Urine 0 /hpf (0-5)
[2024-10-24 21:52] LABS: Bacteria,Urine Rare; Bilirubin,Urine Negative (Negative); Blood,Urine Trace (Negative); Clarity,Urine Clear (Clear/Hazy); Color,Urine Lt-Yellow (Lt Yel-Yel); Glucose, Urine 3+ (Negative); Hyaline Casts,Urine 1 /hpf (0-1); Ketones,Urine Negative (Negative); Leukocyte Esterase,Urine Negative (Negative); Nitrite,Urine Negative (Negative); PH,Urine 5.5 (5.0-7.0); Protein,Urine 1+ (Neg - Trace); RBC,Urine 3 /hpf (0-3); Specific Gravity,Urine 1.013 (1.001-1.035); Squamous Epithelial Cell,Urine < 1 /hpf (0-5); Urobilinogen,Urine Negative mg/dL (0.0-1.0)
[2024-10-24 21:58] LABS: Amphetamine/Methamp Scrn,U Negative (Negative); Barbiturate Screen,Urine Negative (Negative); Benzodiazepines Screen,Urine Negative (Negative); Benzoylecgonine Screen, Ur Negative (Negative); Fentanyl Screen,Urine Negative (Negative); Opiate Screen,Urine Negative (Negative); THC Screen,Urine Negative (Negative)
[2024-10-25] VITALS (7 sets, daily range): BP systolic 104–129; BP diastolic 56–71; PULSE 72–86; RESP 17–18; TEMP 36.1–36.8; O2SAT 97–99
--- NOTE | 2024-10-25 04:28 | XR_ITS ---
Examination: Retroperitoneal ultrasound, complete Technique: Multiple high resolution grayscale images of the retroperitoneum obtained, including kidneys and bladder. Exam date and time:October 25, 2024 0816 hrs. Indications: Acute renal insufficiency today, acute kidney injury on laboratory examination Findings: Right kidney 11.1 x 6.7 x 7.0 cm cortex 1.7 cm Left kidney 13.8 x 7.2 x 5.7 cm cortex 2.6 cm Mild right moderate left renal parenchymal scar formation No hydronephrosis or renal calculi The patient voided prior to the ultrasound study, postvoid volume 68 cc, urinary bladder wall thickening 0.6 cm Prostate 3.6 x 3.6 x 3.1 cm: 21 cc no prostate nodules Impression: Mild right moderate left renal parenchymal scar formation No hydronephrosis or renal calculi. Cystitis pattern
[2024-10-25 05:29] LABS: Basophils # (Auto) 0.1 Thou/mm3 (0.0-0.2); Basophils % (Auto) 1 % (0-2.5); Eosinophils # (Auto) 0.1 Thou/mm3 (0.0-0.5); Eosinophils % (Auto) 2 % (0-10); Hematocrit 29.8 % (41.0-53.0); Hemoglobin 10.7 g/dL (13.5-16.0); Immature Granulocytes % (Auto) 0 % (0-0); Immature Granulocytes Auto 0.03 Thou/mm3 (0.00-0.00); Lymphocytes # (Auto) 2.4 Thou/mm3 (1.0-4.8); Lymphocytes % (Auto) 34 % (10-50); Mean Corpuscular HGB Conc 35.9 g/dl (31.0-37.0); Mean Corpuscular Hemoglobin 31.1 pg (25.0-35.0); Mean Corpuscular Volume 87 fL (80-100); Monocytes # (Auto) 0.7 Thou/mm3 (0.0-0.8); Monocytes % (Auto) 10 % (0-12); Neutrophils # (Auto) 3.8 Thou/mm3 (1.8-7.7); Neutrophils % (Auto) 53 % (37-80); Nucleated Red Blood Cell % 0 /100 WBC (0); Platelet Count 219 Thou/mm3 (140-440); RDW Standard Deviation 40.4 fL (35.1-43.9); Red Blood Count 3.44 Miln/mm3 (4.50-5.90); White Blood Count 7.2 Thou/mm3 (3.8-10.6)
[2024-10-25 06:20] LABS: Anion Gap 13 (7-16); BUN/Creatinine Ratio 16 Ratio (12-20); Blood Urea Nitrogen 68 mg/dL (9-23); Calcium 9.2 mg/dL (8.3-10.6); Carbon Dioxide 22.8 mMol/L (20.0-31.0); Chloride 103 mMol/L (98-107); Creatinine (Component) 4.2 mg/dL (0.6-1.3); Glucose 81 mg/dL (74-106); Osmolality,Calculated 296 (275-295); Potassium 3.2 mMol/L (3.4-5.1); Sodium 139 mMol/L (136-145); eGFR 16 See Note
--- NOTE | 2024-10-25 07:48 | ESCONSULT_ITS ---
History of Present Illness Data of Consult Consult date: 10/25/24 Requesting Physician: Teja Pike MD Primary Care Provider: Edgar Benoit MD Consult Narrative Reason for consult: JEREMÍAS History of present illness: Mr. Devine is a 53-year-old gentleman with past medical history significant for recent onset diabetes, hypertension, dyslipidemia, obstructive sleep apnea on nasal CPAP for the last 8 years, obesity presented to the emergency department complaining of significant weakness and passing out spells for the last few weeks patient stated he was recently started on metformin, Farxiga, Ozempic and since then has lost a significant amount of weight and not feeling well. He has been having decreased appetite nausea, vomiting and eating very minimal and continued to take his medications. On the day before admission he had presyncopal episode and that he was brought to the emergency department. In the ER his blood pressure was 87/58, heart rate 71. Afebrile. WBC 10.8, hemoglobin 12.8, BUN 16, creatinine 5.2, blood sugar 123. Urinalysis shows a significant glucosuria, trace proteinuria. Urine talk screen negative. EKG normal sinus rhythm. Head CT negative. In the emergency department 2 L normal saline bolus was given. Patient admitted for diagnosis of severe dehydration, JEREMÍAS and the presyncopal episodes. His home medications included Lipitor, clonidine, Farxiga, hydrochlorothiazide, metformin, metoprolol, Ozempic, valsartan/hydrochlorothiazide. 10/25/2024 BP 112/68, heart rate 81. Currently seen medical floor. His blood sugar 109. WBC 7.2, hemoglobin 10.7, platelets 219. Sodium 139, potassium 3.2, bicarbonate 22.8, BUN 68, creatinine 4.2, GFR 16,calcium 9.3. Urine tox screen negative. Renal ultrasound showed good sized kidneys. No hydronephrosis. Patient making good urine. Medical team at bedside. cc:: cc: Teja Pike MD Review of Systems Review of Systems Narrative Review of Systems: CONSTITUTIONAL: Patient denies any fever, chills. Complaining of fatigue, weight loss HEENT: Denies any visual disturbances or hearing problems. CARDIOVASCULAR: Patient denies any chest pain, shortness of breath, swelling in the lower extremities. PULMONARY: Patient denies any shortness of breath, cough. GASTROINTESTINAL: Patient denies any abdominal pain, constipation.did have nausea, vomiting GENITOURINARY: Patient denies any urinary symptoms of burning or frequency or hematuria, denies any form in the urine. SKIN: Denies any rash. MUSCULOSKELETAL: Denies any muscular skeletal problems of joint pains. NEUROLOGICAL: Denies any neurological problems of strokes, seizures or confusion. Denies any memory problems. Presyncopal episodes PSYCHIATRIC: Denies any depression or anxiety. LYMPHATICS : No lymphadenopathy Past Medical History Past Medical History NEUROLOGIC: Negative Neurological Disorders or Seizures CARDIAC: Positive Cardiac Disorders, Hypercholesterolemia and Hypertension; Negative Congestive Heart Failure RESPIRATORY: Positive Sleep Apnea and Smoking Exposure; Negative Chronic Obstructive Pulmonary Disease (COPD) GASTROINTESTINAL: Positive Gastrointestinal Disorders and Obesity GENITOURINARY: Negative Genitourinary Disorders or Renal Disease MUSCULOSKELETAL: Negative Musculoskeletal Disorders ENDOCRINE: Positive Diabetes Mellitus Type 2; Negative Endocrine Disorders or Diabetes Mellitus Type 1 HEMATOLOGIC: Negative Blood Disorders OTHER HISTORY: Negative Blood Transfusions, Blood Transfusion Reaction, Anesthesia Reactions, Organ Transplant, Chemotherapy, Radiation Therapy, Hyperbaric Therapy or Cancer Family History FAMILY HISTORY: Negative Family Respiratory Disorders or Family Cardiac Disorders Surgical History SURGICAL: Negative Joint Replacement (right menscisectomy) or Organ Transplant Social History SMOKING STATUS: Never smoker SECOND HAND EXPOSURE: Yes SUBSTANCE USE: does not use Meds Home Medications and Allergies Home Medications ?Medication ?Instructions ?Recorded ?Confirmed ?Type hydrochlorothiazide 25 mg tablet 25 mg PO QAM #0 tabs 12/02/15 10/24/24 History metoprolol tartrate 50 mg tablet 50 mg PO HS #0 tabs 12/02/15 10/24/24 History atorvastatin 40 mg tablet 40 mg PO QDAY 10/17/23 10/24/24 History clonidine HCl 0.3 mg tablet 0.3 mg PO TID 10/24/24 10/24/24 History dapagliflozin propanediol 10 mg 10 mg PO QDAY 10/24/24 10/24/24 History tablet (Farxiga) metformin 750 mg tablet,extended 750 mg PO BID 10/24/24 10/24/24 History release 24 hr semaglutide 0.25 mg or 0.5 mg (2 0.25 mg subcut QWEEK 10/24/24 10/24/24 History mg/3 mL) subcutaneous pen injector (Ozempic) valsartan 320 1 tab PO QDAY 10/24/24 10/24/24 History mg-hydrochlorothiazide 25 mg tablet Allergies Allergy/AdvReac Type Severity Reaction Status Date / Time No Known Allergies Allergy Verified 10/24/24 15:42 Exam Vital Signs Temp Pulse Resp BP Pulse Ox O2 Del Method FiO2 36.4 C 72 18 121/69 97 CPAP 21 10/25/24 04:00 10/25/24 04:00 10/25/24 04:00 10/25/24 04:00 10/25/24 04:00 10/25/24 04:00 10/24/24 23:16 Narrative Exam GENERAL APPEARANCE: Patient seems to be comfortable, adequately hydrated and nourished. Patient still looks dehydrated. HEENT: EOMI, PERRLA NECK: Neck supple, no JVD or bruit CARDIOVASCULAR: Heart regular, no murmurs LUNGS/CHEST: Chest clear to auscultation. No rales, rhonchi, wheezing ABDOMEN: Soft, nontender, nondistended. No masses. Normal bowel sounds. EXTREMITIES: No edema, clubbing or cyanosis. SKIN: Skin exam normal without any rashes MUSCULOSKELETAL: Musculoskeletal exam normal PSYCHIATRIC: Normal mood, affect LYMPHATICS: No lymphadenopathy noted NEUROLOGICAL : No neurological deficits Results Labs 10/25/24 04:12 10/25/24 04:12 Labs: Short CBC 10/24/24 10/25/24 Range/Units 16:22 04:12 WBC 10.8 H 7.2 (3.8-10.6) Thou/mm3 Hgb 12.8 L 10.7 L D (13.5-16.0) g/dL Hct 35.5 L 29.8 L (41.0-53.0) % Plt Count 279 219 D (140-440) Thou/mm3 BMP 10/24/24 10/25/24 16:22 04:12 Sodium 137 139 Potassium 3.6 3.2 L Chloride 100 103 Carbon Dioxide 23.0 22.8 BUN 69 H 68 H Creatinine 5.2 H* D 4.2 H* D Glucose 123 H 81 Calcium 10.7 H 9.2 D Cardiac Enzymes 10/24/24 Range/Units 16:22 Troponin I < 0.020 (0.0-0.045) ng/mL Liver Function 10/24/24 Range/Units 16:22 Total Bilirubin 1.0 (0.3-1.2) mg/dL AST 29 (0-34) U/L ALT 36 (10-49) U/L Alkaline Phosphatase 82 (46-116) U/L Albumin 5.1 H (3.5-5.0) gm/dL Urine 10/24/24 Range/Units 21:20 Urine Color Lt-Yellow (Lt Yel-Yel) Urine Clarity Clear (Clear/Hazy) Urine pH 5.5 (5.0-7.0) Ur Specific [place] 1.013 (1.001-1.035) Urine Protein 1+ A (Neg - Trace) Urine Glucose (UA) 3+ A (Negative) Assessment & Plan Assessment and plan (1) Acute kidney injury: Status: Acute Assessment and plan: JEREMÍAS secondary to severe dehydration/prerenal azotemia. Patient on multiple medications which can cause a decline in GFR-Farxiga, hydrochlorothiazide, metformin, valsartan/hydrochlorothiazide. Agree with holding off on all medications, Creased p.o. intake/IV hydration. Renal ultrasound showed no hydronephrosis. Started to make urine. Await 1 to 2 days for renal recovery. Creatinine started to trend down. No need for renal replacement therapy. Patient had several questions which were answered to his satisfaction. Noted trace proteinuria-probably transient proteinuria from severe dehydration. (2) Dehydration: Status: Acute Assessment and plan: Patient so far received 4 L of fluids (3) Pre-syncope: Status: Acute Assessment and plan: Secondary to rapid weight loss and hypotension. (4) Hypotension: Status: Acute Assessment and plan: Hold off on all blood pressure medications (5) Diabetes: Status: Acute Assessment and plan: Accu-Cheks, sliding scale, consistent carb low. Until his kidney function improves he will benefit from insulin-if needed (6) Hyperlipidemia: Status: Acute Assessment and plan: On statins. Check lipid panel (7) Obesity: Status: Acute Assessment and plan: BMI 50.8. Was on Ozempic. Once stable can resume as an [id number] Additional Assessment & Plan Additional Plan: Thank you Dr. Kent for allowing me to participate in the care of Mr. Perla
[2024-10-25 08:56] LABS: Creatinine,Random Urine 54 mg/dL (30-125); Sodium,Urine Random 81.2 mMol/L (20.0-110.0)
[2024-10-25] MEDS: POTASSIUM CHLORIDE 20 mEq TABCR 40 MEQ PO (10:10)
[2024-10-25] MEDS: RINGERS LACTATED 1000 ML 1,000 ML 100 ML IV (14:18)
--- NOTE | 2024-10-25 16:18 | PD.RESPRO ---
Documentation for date of: 10/25/24 Subjective Subjective Interval history: 10/25: Patient is an overnight admit. Patient is seen and examined at bedside this morning patient states that for the last several weeks he has been feeling dizziness and episodes of blacking out . Patient states that he is aware that since he started Ozempic 4 weeks ago he started eating less and was not drinking any water throughout the day, which likely contributed to him passing out. Patient states his dizziness has completely resolved, patient denies any prior history of similar episodes before starting Ozempic. Patient denies any chest pain, abdominal pain. He states that he recently was diagnosed with peripheral neuropathy which sometimes causes pain in his legs. Patient was started on gabapentin by his primary care but is unsure if that has helped his symptoms. Exam Vital Signs Temp Pulse Resp BP Pulse Ox O2 Del Method FiO2 98 F 81 18 112/68 97 Room Air 21 10/25/24 12:00 10/25/24 12:10/25/24 12:10/25/24 12:10/25/24 12:10/25/24 12:10/24/24 23:16 Narrative Exam General: Obese male, awake, alert and oriented x 3 HEENT: Normocephalic, atraumatic, mucous membranes moist. Heart: Regular rate and rhythm, no murmurs. Lungs: Clear to auscultation with no wheezing or crackles. Abdomen: Soft, nondistended, nontender, positive bowel sounds. ?No guarding or rebound tenderness. Neurologic: Alert and oriented x3, no gross neurological deficit, and patient able to move all 4 extremities. Extremities: No edema. Skin: No rash or ecchymoses. Objective Labs 10/26/24 05:32 10/26/24 05:32 Labs: Laboratory Results - last 24 hr 10/24/24 10/24/24 10/25/24 16:22 21:20 04:12 WBC 10.8 H 7.2 RBC 4.16 L 3.44 L Hgb 12.8 L 10.7 L D Hct 35.5 L 29.8 L MCV 85 87 MCH 30.8 31.1 MCHC 36.1 35.9 RDW Std Deviation 39.8 40.4 Plt Count 279 219 D Neut % (Auto) 78 53 Lymph % (Auto) 13 34 [place] % (Auto) 8 10 Eos % (Auto) 0 2 Baso % (Auto) 1 1 Neut # (Auto) 8.4 H 3.8 Lymph # (Auto) 1.4 2.4 [place] # (Auto) 0.9 H 0.7 Eos # (Auto) 0.0 0.1 Baso # (Auto) 0.1 0.1 Immature Gran # (Auto) 0.06 H 0.03 H Absolute Nucleated RBC 0.00 0.00 Immature Gran % 1 H 0 Nucleated RBC % 0 0 PT 12.1 INR 1.1 APTT 26.2 Sodium 137 139 Potassium 3.6 3.2 L Chloride 100 103 Carbon Dioxide 23.0 22.8 Anion Gap 14 13 BUN 69 H 68 H Creatinine 5.2 H* D 4.2 H* D Estim Creat Clear Calc 22.5 L 28.0 L eGFR 12 L* 16 L BUN/Creatinine Ratio 13 16 Glucose 123 H 81 Calculated Osmolality 294 296 H Calcium 10.7 H 9.2 D Corrected Calcium 10.7 H Magnesium 1.9 Total Bilirubin 1.0 AST 29 ALT 36 Alkaline Phosphatase 82 Troponin I < 0.020 B-Natriuretic Peptide < 20 Total Protein 8.1 Albumin 5.1 H Globulin 3.0 Albumin/Globulin Ratio 1.7 Ur Collection Type Clean Catch Urine Color Lt-Yellow Urine Clarity Clear Urine pH 5.5 Ur Specific [place] 1.013 Urine Protein 1+ A Urine Glucose (UA) 3+ A Urine Ketones Negative Urine Blood Trace Urine Nitrite Negative Urine Bilirubin Negative Urine Urobilinogen (Auto) Negative Ur Leukocyte Esterase Negative Urine RBC 3 Urine WBC 0 Ur Squamous Epith Cells < 1 Urine Bacteria Rare Hyaline Casts 1 Ur Random Creatinine Ur Random Sodium Urine Opiates Screen Negative Urine Fentanyl Screen Negative Ur Barbiturates Screen Negative U Amphetamin/Meth Scrn Negative U Benzodiazepines Scrn Negative U Cocaine Metab Screen Negative U Marijuana (THC) Screen Negative Blood Type A Positive Antibody Screen NEGATIVE Blood Bank Wristband ID Yes 10/25/24 07:21 WBC RBC Hgb Hct MCV MCH MCHC RDW Std Deviation Plt Count Neut % (Auto) Lymph % (Auto) [place] % (Auto) Eos % (Auto) Baso % (Auto) Neut # (Auto) Lymph # (Auto) [place] # (Auto) Eos # (Auto) Baso # (Auto) Immature Gran # (Auto) Absolute Nucleated RBC Immature Gran % Nucleated RBC % PT INR APTT Sodium Potassium Chloride Carbon Dioxide Anion Gap BUN Creatinine Estim Creat Clear Calc eGFR BUN/Creatinine Ratio Glucose Calculated Osmolality Calcium Corrected Calcium Magnesium Total Bilirubin AST ALT Alkaline Phosphatase Troponin I B-Natriuretic Peptide Total Protein Albumin Globulin Albumin/Globulin Ratio Ur Collection Type Urine Color Urine Clarity Urine pH Ur Specific [place] Urine Protein Urine Glucose (UA) Urine Ketones Urine Blood Urine Nitrite Urine Bilirubin Urine Urobilinogen (Auto) Ur Leukocyte Esterase Urine RBC Urine WBC Ur Squamous Epith Cells Urine Bacteria Hyaline Casts Ur Random Creatinine 54 Ur Random Sodium 81.2 Urine Opiates Screen Urine Fentanyl Screen Ur Barbiturates Screen U Amphetamin/Meth Scrn U Benzodiazepines Scrn U Cocaine Metab Screen U Marijuana (THC) Screen Blood Type Antibody Screen Blood Bank Wristband ID Quality Measures Quality Measures none Assessment & Plan Assessment Current Active Medications: Generic Name Dose Route Start Last Admin Trade Name Freq PRN Reason Stop Dose Admin Acetaminophen 650 mg 10/25/24 10:56 Acetaminophen 325 Mg Tablet PO 11/23/24 19:52 Q6H PRN Fever >100.3 Atorvastatin Calcium 40 mg 10/25/24 21:00 Atorvastatin Calcium 20 Mg Tablet PO 11/24/24 20:59 HS KEVIN Dextrose 25 ml 10/24/24 19:57 Dextrose 50%-Water Inj 50 Ml Syringe IV 11/23/24 19:56 Q15MIN PRN BG 50-70 responsive npo pt Dextrose 50 ml 10/24/24 19:57 Dextrose 50%-Water Inj 50 Ml Syringe IV 11/23/24 19:56 Q15MIN PRN BG <50 OR BG <70 & pt unresponsive Glucagon 1 mg 10/24/24 19:57 Glucagon Inj 1 Mg Vial IM Q15MIN PRN BG <70, and no IV access Lactated Ringer's 1,000 mls @ 100 mls/hr 10/25/24 10:11 10/25/24 14:18 Lactated Ringers IV 11/24/24 10:10 100 mls/hr .Q10H KEVIN Administration Insulin Human Lispro 0 unit 10/24/24 21:00 10/25/24 12:08 Insulin Lispro (Admelog) 1 Unit/0.01 Ml Unit SC 11/23/24 20:59 Not Given ACHS KVEIN Protocol Ondansetron HCl 4 mg 10/24/24 19:53 Ondansetron Inj 2 Mg/Ml Inj 2 Ml IV 11/23/24 19:52 Q6H PRN NAUSEA OR VOMITING Protocol Plan A 53-year-old male with a past medical history of morbid obesity, hypertension, diabetes mellitus, hyperlipidemia, obstructive sleep apnea using CPAP at home presented to the hospital with chief complaints of generalized weakness and syncopal episodes since 5 weeks and admitted for acute kidney injury and syncopal episodes. # Acute kidney injury on ?CKD, likely prerenal Likely in the setting of dehydration due to poor oral intake, due to decreased appetite from Ozempic and continued valsartan usage -Patient has risk factors of obesity, hypertension, diabetes mellitus, hyperlipidemia -Patient was recently started on Ozempic following which patient had decreased appetite and poor oral intake -Reported that he is having dark yellowish discoloration of urine and also noted decreased amount of urine in the last 2 days. -Denies [id number] medication use/herbal preparations. -Labs done at the admission showed BUN 69, creatinine 5.2 -Baseline creatinine is 1.3 on 09/14/2024, on 10/19/14 is 1.6 -2 L of IV NS bolus is given in the ED -Renal ultrasound- Mild right moderate left renal parenchymal scar formation, No hydronephrosis or renal calculi. Cystitis pattern Plan -Started on IV fluids, NS at 125 mL/h -Encouraged to take plenty of oral fluids -Urine sodium 81.2 and creatinine 54 -Held antihypertensive medications and ozempic for now -Avoid nephrotoxic medications and renally dose medications -Dr. Paniagua is consulted, pending recommendations. # Syncope Likely vasovagal in the setting of dehydration and JEREMÍAS -Patient denied chest pain, palpitations, shortness of breath -Had 2 episodes with each episode lasting for few seconds and without any trauma -Denies associated involuntary movements -CT head negative for hemorrhage/mass effect/midline affect -EKG showed normal sinus rhythm Plan -Orthostatic vitals (supine 104/56, sitting 110/63, standing 122/64) -Echo is ordered -Placed on medtele # History of diabetes # Morbid obesity -Patient was initially started on insulin but as the patient had hypoglycemic episodes started on oral hypoglycemic agents -On dapagliflozin, metformin -In view of high BMI, 50.8 patient was started on Ozempic -A1c on 10/19/2024 is 10.7 Plan -Started on insulin sliding scale -Hypoglycemic protocol is placed # History of hypertension -Patient is using clonidine 0.3 Mg p.o. 3 times daily, metoprolol 50 Mg p.o. at bedtime, valsartan -Blood pressure at the time of admission is 87/58 mmHg -Continue to monitor blood pressures -Add medications accordingly # History of LADONNA -Patient is using CPAP at bedtime since 7 years -Resumed home CPAP at night # History of hyperlipidemia -Patient is using atorvastatin 40 Mg p.o. daily at home -Lipid panel done on 09/29 showed triglycerides of 443 -Resumed home atorvastatin Hospital Maintenance: Dispo: medtele DVT ppx: SCD GI ppx: not needed Diet: Renal, low carb consistent IV lines: Peripheral Code status: Full Assessment and plan discussed with my attending physician Dr. Yoli Yost (PGY-1)- Internal medicine resident Attending Provider Attestation/Addendum IRhonda, , attest that I was physically present for the garner portions of the service and evaluated the patient with the resident and I reviewed and discussed the case with the resident and agree with the resident's findings and plans of care as documented above Patient seen and evaluated this AM. He states that he is feeling improved today. Renal function improving. Patient states that he takes several different medications at home and possibly HCTZ, as well as valsartan- HCTZ. He has had very poor appetite since taking ozempic and does not consume much water. Orthostatics negative this morning. Case discussed with nephrology. Continue with Iv fluids.
[2024-10-25] MEDS: ATORVASTATIN CALCIUM 20 MG TABLET 40 MG PO (20:37)
[2024-10-25 20:59] LABS: Creatinine,Random Urine 61 mg/dL (30-125); Protein Total, Random Urine 15 mg/dL (1-14)
[2024-10-26] VITALS: BP 126/85; PULSE 82; RESP 18; TEMP 36.9; O2SAT 97
[2024-10-26] MEDS: RINGERS LACTATED 1000 ML 1,000 ML 100 ML IV (01:00)
[2024-10-26 03:00] VITALS: PULSE 79
[2024-10-26 04:00] VITALS: BP 143/84; PULSE 82; RESP 21; TEMP 36.6; O2SAT 97
[2024-10-26 05:54] LABS: Basophils # (Auto) 0.1 Thou/mm3 (0.0-0.2); Basophils % (Auto) 1 % (0-2.5); Eosinophils # (Auto) 0.1 Thou/mm3 (0.0-0.5); Eosinophils % (Auto) 2 % (0-10); Hematocrit 32.6 % (41.0-53.0); Hemoglobin 11.7 g/dL (13.5-16.0); Immature Granulocytes % (Auto) 0 % (0-0); Immature Granulocytes Auto 0.02 Thou/mm3 (0.00-0.00); Lymphocytes # (Auto) 1.9 Thou/mm3 (1.0-4.8); Lymphocytes % (Auto) 30 % (10-50); Mean Corpuscular HGB Conc 35.9 g/dl (31.0-37.0); Mean Corpuscular Hemoglobin 30.9 pg (25.0-35.0); Mean Corpuscular Volume 86 fL (80-100); Monocytes # (Auto) 0.6 Thou/mm3 (0.0-0.8); Monocytes % (Auto) 9 % (0-12); Neutrophils # (Auto) 3.7 Thou/mm3 (1.8-7.7); Neutrophils % (Auto) 58 % (37-80); Nucleated Red Blood Cell % 0 /100 WBC (0); Platelet Count 214 Thou/mm3 (140-440); RDW Standard Deviation 39.5 fL (35.1-43.9); Red Blood Count 3.79 Miln/mm3 (4.50-5.90); White Blood Count 6.3 Thou/mm3 (3.8-10.6)
[2024-10-26 06:32] LABS: Anion Gap 12 (7-16); BUN/Creatinine Ratio 26 Ratio (12-20); Blood Urea Nitrogen 45 mg/dL (9-23); Calcium 9.6 mg/dL (8.3-10.6); Carbon Dioxide 24.3 mMol/L (20.0-31.0); Chloride 104 mMol/L (98-107); Cholesterol 136 mg/dL (132-200); Creatinine (Component) 1.7 mg/dL (0.6-1.3); Estimated Creatinine Clearance 69.2 mL/min (>60); Glucose 90 mg/dL (74-106); HDL Cholesterol 34 mg/dL (40-60); LDL Cholesterol,Calculated 71 mg/dL (0-130); Osmolality,Calculated 290 (275-295); Sodium 140 mMol/L (136-145); Triglycerides 155 mg/dL (30-150); eGFR 47 See Note
[2024-10-26 08:00] VITALS: BP 145/92; PULSE 82; PULSE 84; RESP 18; TEMP 36.4; O2SAT 96
[2024-10-26] MEDS: POTASSIUM CHLORIDE 20 mEq TABCR 40 MEQ PO (09:45)
--- NOTE | 2024-10-26 10:18 | PD.RESPRO ---
Documentation for date of: 10/26/24 Subjective Subjective Interval history: Maninder Devine is a 53-year-old gentleman with past medical history of recent onset type 2 diabetes mellitus, hypertension, dyslipidemia, obstructive sleep apnea on nasal CPAP for the last 8 years, and obesity presented to the ED complaining of significant weakness and passing out spells for the last few weeks. He states he was recently started on metformin, Farxiga, Ozempic and has since lost a significant amount of weight and not feeling well. He also endorsese decreased appetite nausea, vomiting and significantly decreased PO intake during this time. On the day before admission, he had a presyncopal episode and that prompted him to visit the ED. In the ED, his blood pressure was 87/58, heart rate 71. Afebrile. WBC 10.8, hemoglobin 12.8, BUN 16, creatinine 5.2, blood sugar 123. Urinalysis significant for glucosuria, trace proteinuria. Urine toxicology negative. EKG NSR. Head CT negative. 2 L normal saline bolus given. Admitted for diagnosis of severe dehydration, JEREMÍAS and presyncopal episodes. Home medications include Lipitor, clonidine, Farxiga, hydrochlorothiazide, metformin, metoprolol, Ozempic, valsartan/hydrochlorothiazide. 10/25: Currently seen medical floor. BP 112/68, HR 81. Blood sugar 109. WBC 7.2, hemoglobin 10.7, platelets 219. Sodium 139, potassium 3.2, bicarbonate 22.8, BUN 68, creatinine 4.2, GFR 16,calcium 9.3. Urine tox screen negative. Renal ultrasound showed normal-sized kidneys and no hydronephrosis. Making good urine. Medical team at bedside. 10/26: Seen and examined at bedside on medical floor. Appears to be much improved in general appearance and patient states he feels much better. Labs and orders reviewed. Renal function markedly improved from admission, and recommended patient to discontinue HCTZ and farxiga and to maintain PO intake. Stable for discharge from nephrology standpoint. Exam Vital Signs Temp Pulse Resp BP Pulse Ox O2 Del Method FiO2 97.6 F 84 18 145/92 H 96 Room Air 21 10/26/24 08:00 10/26/24 08:00 10/26/24 08:00 10/26/24 08:00 10/26/24 08:00 10/26/24 08:00 10/24/24 23:16 Narrative Exam General: AOx3, no acute distress, able to speak full sentences HEENT: NC/AT, mucous membranes moist, bilateral sclera anicteric Cardiovascular: regular rate and rhythm, S1/S2 present, no murmurs appreciated Pulmonary: clear to auscultation bilaterally, no rales/rhonchi/wheezes Abdominal: soft, non-tender, non-distended, no rebound/guarding, normal bowel sounds present Musculoskeletal: normal ROM, no peripheral edema Skin: warm and dry, intact, no rashes Neuro: CN II-XII intact, no focal deficits Objective Labs 10/26/24 05:32 10/26/24 05:32 Labs: Laboratory Results - last 24 hr 10/25/24 10/26/24 19:45 05:32 WBC 6.3 RBC 3.79 L Hgb 11.7 L Hct 32.6 L MCV 86 MCH 30.9 MCHC 35.9 RDW Std Deviation 39.5 Plt Count 214 Neut % (Auto) 58 Lymph % (Auto) 30 [place] % (Auto) 9 Eos % (Auto) 2 Baso % (Auto) 1 Neut # (Auto) 3.7 Lymph # (Auto) 1.9 [place] # (Auto) 0.6 Eos # (Auto) 0.1 Baso # (Auto) 0.1 Immature Gran # (Auto) 0.02 H Absolute Nucleated RBC 0.00 Immature Gran % 0 Nucleated RBC % 0 Sodium 140 Potassium 3.0 L Chloride 104 Carbon Dioxide 24.3 Anion Gap 12 BUN 45 H Creatinine 1.7 H D Estim Creat Clear Calc 69.2 eGFR 47 L BUN/Creatinine Ratio 26 H Glucose 90 Calculated Osmolality 290 Calcium 9.6 Triglycerides 155 H Cholesterol 136 LDL Cholesterol, Calc 71 HDL Cholesterol 34 L Cholesterol/HDL Ratio 4.0 Ur Random Creatinine 61 U Random Total Protein 15 H Quality Measures Quality Measures none Assessment & Plan Assessment Current Active Medications: Generic Name Dose Route Start Last Admin Trade Name Freq PRN Reason Stop Dose Admin Acetaminophen 650 mg 10/25/24 10:56 Acetaminophen 325 Mg Tablet PO 11/23/24 19:52 Q6H PRN Fever >100.3 Atorvastatin Calcium 40 mg 10/25/24 21:00 10/25/24 20:37 Atorvastatin Calcium 20 Mg Tablet PO 11/24/24 20:59 40 mg HS KEVIN Administration Dextrose 25 ml 10/24/24 19:57 Dextrose 50%-Water Inj 50 Ml Syringe IV 11/23/24 19:56 Q15MIN PRN BG 50-70 responsive npo pt Dextrose 50 ml 10/24/24 19:57 Dextrose 50%-Water Inj 50 Ml Syringe IV 11/23/24 19:56 Q15MIN PRN BG <50 OR BG <70 & pt unresponsive Glucagon 1 mg 10/24/24 19:57 Glucagon Inj 1 Mg Vial IM Q15MIN PRN BG <70, and no IV access Lactated Ringer's 1,000 mls @ 100 mls/hr 10/25/24 10:11 10/26/24 01:00 Lactated Ringers IV 11/24/24 10:10 100 mls/hr .Q10H KEVIN Administration Insulin Human Lispro 0 unit 10/24/24 21:00 10/26/24 07:28 Insulin Lispro (Admelog) 1 Unit/0.01 Ml Unit SC 11/23/24 20:59 Not Given ACHS KEVIN Protocol Ondansetron HCl 4 mg 10/24/24 19:53 Ondansetron Inj 2 Mg/Ml Inj 2 Ml IV 11/23/24 19:52 Q6H PRN NAUSEA OR VOMITING Protocol Plan Maninder Devine is a 53-year-old gentleman with past medical history of recent onset type 2 diabetes mellitus, hypertension, dyslipidemia, obstructive sleep apnea on nasal CPAP for the last 8 years, and obesity who was admitted for management of acute kidney injury, hypotension, and presyncope in setting of decreased PO intake. Nephrology consulted for acute kidney injury. #Acute kidney injury, secondary to prerenal azotemia #Dehydration #Presyncope #Hypotension On multiple medications that can cause decline in GFR, including farxiga, HCTZ, valsartan, and metformin. Has also had decreased PO intake recently. Renal ultrasound showed no signs of hydronephrosis and patient making good urine with improvement in renal function as creatinine has decreased from 4.2 to 1.7. ? Hold off on above medications and restart as patient renal function improves ? Recommend discontinuing HCTZ, metformin, and farxiga and discharge with valsartan 80 mg ? Encourage increased PO intake if patient can tolerate #Type 2 diabetes mellitus #Hyperlipidemia #Obesity #Obstructive sleep apnea ? Continue management per primary team ----- Plan discussed with attending physician Dr. Siva Pozo MD PGY-1 Internal Medicine Attending Provider Attestation/Addendum Patient seen and examined with resident physician Dr. Salcedo. Note reviewed, agree with findings and recommendations. Patient's creatinine markedly improved with hydration. Spoke to primary team-can be discharged on Ozempic, low-dose valsartan. Follow-up with me in 1 to 2 weeks.
[2024-10-26 12:00] VITALS: BP 146/83; PULSE 80; PULSE 90; RESP 17; TEMP 36.6; O2SAT 96
--- NOTE | 2024-10-26 14:31 | ESDS_ITS ---
<Statement entered by Rhonda Kent DO - 10/27/24 17:13> I, Rhonda Kent DO, attest that I was physically present for the garner portions of the service and evaluated the patient with the resident and I reviewed and discussed the case with the resident and agree with the resident's findings and plans of care as documented above Planned Discharge Date 10/26/24 DS: Providers Provider Date of admission: 10/24/24 19:53 Primary care physician: Edgar Benoit MD Admitting Provider: Teja Pike MD Attending Provider on Admission: Rhonda Kent DO Consults: 10/25/24 04:27 Consult to Nephrology Routine Comment: Acute kidney injury Consulting Provider: Rocio Paniagua Attending Provider on DC: Marielena Yost MD Discharging Provider: Marielena Yost MD DS: Diagnosis Problem List Completed Was Problem List Reviewed/Reconciled?: Yes Hospital Course Hospital Course Hospital course: Mr. Perla is a 53-year-old gentleman with past medical history of recent onset type 2 diabetes mellitus, hypertension, dyslipidemia, obstructive sleep apnea on nasal CPAP for the last 8 years, and obesity presented to [facility] ED on 10/24/24 complaining of significant weakness and passing out spells for the last few weeks. Patient was recently started on metformin, Farxiga, Ozempic and has since lost a significant amount of weight and not feeling well. Patient also was taking a combination pill of valsartan and hydrochlorothiazide as well as a hydrochlorothiazide. On admission patient's found to have acute renal failure which was most likely related to dehydration. Patient was started on IV fluids and patient's kidney function significantly improved. Patient's symptoms completely resolved and is hemodynamically stable to be discharged home. Patient was also cleared from nephrology standpoint for discharge. Patient is strongly advised to adhere to the changes to the medications and if his symptoms recur or worsen to promptly return to the ED. Images Chest x-ray?no active disease EKG?sinus rhythm with no acute ST or T wave changes Head CT?Bilateral chronic subdural hygromas with no mass effect, Negative for acute hemorrhage or midline shift Echocardiogram? Normal LV size and function. Estimated EF 55-60% Renal ultrasound?Mild right moderate left renal parenchymal scar formation, No hydronephrosis or renal calculi, Cystitis pattern Discharge Recommendations Patient is medically cleared for discharge and recommended follow-up with nephrology in 1 week Patient is recommended to discontinue hydrochlorothiazide, valsartan?hydrochlorothiazide, Farxiga, metformin Patient will be sent home with a new prescription for valsartan 160 mg daily Patient is recommended to continue with Ozempic at the lowest dose of 0.25 mg p.o. daily Patient is recommended to follow-up with nephrology Dr. Paniagua in her office and his antihypertensives will be resumed after a blood pressure log is maintained with morning, noon, and evening readings.( [phone]) Hospitalization Diagnosis # Acute kidney injury likely prerenal # Syncope # History of diabetes # Morbid obesity # History of hypertension # History of LADONNA # History of hyperlipidemia Assessment and plan discussed with my senior resident Dr. West & attending physician Dr. Yoli Yost (PGY-1)- Internal medicine resident Senior resident attestation: Patient evaluated and examined at the bedside, plan of care discussed with rest of the team including my attending physician, except as noted. Brett PGY2 Time Spent with Patient Time attestation: Total time spent providing and/or coordinating discharge services: Greater than 30 minutes Exam Vital Signs Temp Pulse Resp BP Pulse Ox O2 Del Method FiO2 97.8 F 80 17 146/83 H 96 Room Air 21 10/26/24 12:10/26/24 12:10/26/24 12:10/26/24 12:10/26/24 12:10/26/24 12:10/24/24 23:16 Narrative Exam General: Obese male, awake, alert and oriented x 3 HEENT: Normocephalic, atraumatic, mucous membranes moist. Heart: Regular rate and rhythm, no murmurs. Lungs: Clear to auscultation with no wheezing or crackles. Abdomen: Soft, nondistended, nontender, positive bowel sounds. ?No guarding or rebound tenderness. Neurologic: Alert and oriented x3, no gross neurological deficit, and patient able to move all 4 extremities. Extremities: No edema. Skin: No rash or ecchymoses. Discharge Plan Plan Patient Disposition: HOME (Self Care) Patient condition on transfer: Stable Care Plan Goals: Patient is medically cleared for discharge and recommended follow-up with nephrology in 1 week Patient is recommended to discontinue hydrochlorothiazide, valsartan?hydrochlorothiazide, Farxiga, metformin Patient will be sent home with a new prescription for valsartan 160 mg daily Patient is recommended to continue with Ozempic at the lowest dose of 0.25 mg p.o. daily Patient is recommended to follow-up with nephrology Dr. Paniagua in her office and his antihypertensives will be resumed after a blood pressure log is maintained with morning, noon, and evening readings.( [phone]) Prescriptions/Referrals Prescriptions/Med Rec: New valsartan 160 mg tablet 160 mg PO QDAY Qty: 30 0RF Continued atorvastatin 40 mg tablet 40 mg PO QDAY Ozempic 0.25 mg or 0.5 mg (2 mg/3 mL) pen injector 0.25 mg SUBCUT QWEEK Patient Comments: INJECT 0.25 MG SUBCUTANEOUSLY ONCE A WEEK Discontinued metoprolol tartrate 50 MG tablet 50 mg PO HS Qty: 0 hydrochlorothiazide 25 MG tablet 25 mg PO QAM Qty: 0 clonidine HCl 0.3 mg tablet 0.3 mg PO TID Patient Comments: TAKE 1 TABLET BY MOUTH THREE TIMES DAILY metformin 750 mg tablet extended release 24 hr 750 mg PO BID Patient Comments: TAKE 1 TABLET BY MOUTH TWICE DAILY WITH MEALS valsartan-hydrochlorothiazide 320-25 mg tablet 1 tab PO QDAY Patient Comments: TAKE 1 TABLET BY MOUTH ONCE DAILY dapagliflozin propanediol [Farxiga] 10 mg tablet 10 mg PO QDAY Patient Comments: TAKE 1 TABLET BY MOUTH ONCE DAILY Referrals: Edgar Benoit MD [Primary Care Provider] - Rocio Paniagua MD [Physician] - Patient/Caregiver Discharge Instructions Education Materials: Dehydration, Type 2 Diabetes Print Language: Maori Stand Alone Forms: Jolie Award Info., Patient Portal Info Letter Discharge Order Discharge Orders: Discharge (Routine); Ordered 10/26/24 Ordered By: Hilton West Quality Discharge Quality Measures VTE prophylaxis
--- NOTE | 2024-10-26 16:20 | PCS.ST ---
SS met with patient regarding his d/c plan. Pt is alert/oriented. Pt was admitted for Syncope. Pt confirmed demographic and contact information is correct on facesheet. Pt resides with . Pt ambulates independently without assistance or DME. Pt is ok with all ADLs. Pt named his , Hansa Perla medical decision maker if he is unable. Patient?s choice is to return home upon d/c. Pt does not have an advance directive, SS offered, and pt declined. Pt states his diabetic but is not on dialysis. D/C plan: Return home Next of Kin: Hansa Perla, , phone# [phone] PCP: Dr. Edgar Benoit Address: Correct on facesheet
== END 2024-10-26 13:13 | disposition home or self-care (01) | DRG 683 ==
LOC: SERX 16:51 → SERHOLD 20:22 → S3SX 22:37
PROVIDERS: Internal Medicine; Nurse Practitioner Primary Care; Admitting Provider Student in an Organized Health Care Education/Training Program; Emergency Provider Emergency Medicine; PCP Family Medicine; Visit Provider Internal Medicine
DX: N17.9 Acute kidney failure, unspecified (principal); Z68.43 Body mass index [BMI] 50.0-59.9, adult; E66.01 Morbid (severe) obesity due to excess calories; E86.0 Dehydration; G47.33 Obstructive sleep apnea (adult) (pediatric); E78.00 Pure hypercholesterolemia, unspecified; I95.9 Hypotension, unspecified; E11.65 Type 2 diabetes mellitus with hyperglycemia; I10 Essential (primary) hypertension; Z99.89 Dependence on other enabling machines and devices; Z79.84 Long term (current) use of oral hypoglycemic drugs; Z79.899 Other long term (current) drug therapy; Z79.85 Long-term (current) use of injectable non-insulin antidiabetic drugs
CPT/HCPCS: 36415; 70450; 76770; 80048; 80053; 80061; 80307; 81001; 82570; 83735; 83880; 84156; 84300; 84484; 85025; 85610; 85730; 86850; 86900; 86901; 93005; 93306; 94660; 96360; 96361; 99285; J7030; J7120; A9270

== ENCOUNTER → 2024-10-28 | Outpatient (CLI) | payer BC, SELFPAY ==
[2024-10-28 15:18] LABS: Misc Send Out* See Sep Rpt
[2024-10-28 15:56] LABS: Alanine Aminotransferase 36 U/L (10-49); Albumin, Serum 4.8 gm/dL (3.5-5.0); Albumin/Globulin Ratio 1.9 (1.2-2.2); Alkaline Phosphatase 79 U/L (46-116); Anion Gap 10 (7-16); Aspartate Amino Transferase 33 U/L (0-34); BUN/Creatinine Ratio 14 Ratio (12-20); Bilirubin,Total 1.2 mg/dL (0.3-1.2); Blood Urea Nitrogen 23 mg/dL (9-23); Calcium 9.8 mg/dL (8.3-10.6); Calcium (Corrected) 9.8 mg/dL (8.5-10.1); Carbon Dioxide 30.8 mMol/L (20.0-31.0); Chloride 99 mMol/L (98-107); Creatinine (Component) 1.7 mg/dL (0.6-1.3); Globulin 2.5 gm/dL (2.3-3.5); Glucose 121 mg/dL (74-106); Osmolality,Calculated 284 (275-295); Potassium 3.8 mMol/L (3.4-5.1); Sodium 140 mMol/L (136-145); Total Protein 7.3 gm/dL (5.7-8.2); eGFR 47 See Note
== END | disposition home or self-care (01) ==
LOC: COPL 14:45
PROVIDERS: PCP Family Medicine; Referring Provider Nurse Practitioner Family; Visit Provider Nurse Practitioner Family
DX: N17.9 Acute kidney failure, unspecified (principal)
CPT/HCPCS: 36415; 80053; 82610

== ENCOUNTER 2025-05-07 07:31 | Day surgery (SDC) | payer BC, SELFPAY ==
[2025-05-05 10:25] VITALS: BMI 56.3
--- NOTE | 2025-05-06 07:00 | EKG_ITS ---
[facility] Test Date: 2025-05-06 Pat Name: PORSCHE ANTHONY Department: Room: - Gender: Male Supply Requirements Officer: WALDEMAR : 1970 Requested By: Lance Grier Order Number: [id number] Reading MD: Lance Grier Measurements Intervals [place] Rate: 88 P: 17 MI: 120 QRS: 14 QRSD: 102 T: 30 QT: 355 QTc: 431 Interpretive Statements SINUS RHYTHM Compared to ECG 10/24/2024 16:50:37 No significant changes /store/S0/[id number].pdf
[2025-05-06 11:36] LABS: Basophils # (Auto) 0.1 Thou/mm3 (0.0-0.2); Basophils % (Auto) 1 % (0-2.5); Eosinophils # (Auto) 0.1 Thou/mm3 (0.0-0.5); Eosinophils % (Auto) 2 % (0-10); Hematocrit 43.0 % (41.0-53.0); Hemoglobin 14.5 g/dL (13.5-16.0); Immature Granulocytes Auto 0.06 Thou/mm3 (0.00-0.00); Lymphocytes # (Auto) 1.8 Thou/mm3 (1.0-4.8); Lymphocytes % (Auto) 24 % (10-50); Mean Corpuscular HGB Conc 33.7 g/dl (31.0-37.0); Mean Corpuscular Hemoglobin 30.1 pg (25.0-35.0); Mean Corpuscular Volume 89 fL (80-100); Monocytes # (Auto) 0.5 Thou/mm3 (0.0-0.8); Monocytes % (Auto) 7 % (0-12); Neutrophils # (Auto) 4.9 Thou/mm3 (1.8-7.7); Neutrophils % (Auto) 66 % (37-80); Nucleated Red Blood Cell # 0.00 Thou/mm3 (0.00-0.00); Nucleated Red Blood Cell % 0 /100 WBC (0); Platelet Count 227 Thou/mm3 (140-440); RDW Standard Deviation 41.7 fL (35.1-43.9); Red Blood Count 4.82 Miln/mm3 (4.50-5.90); White Blood Count 7.4 Thou/mm3 (3.8-10.6)
[2025-05-06 11:38] LABS: Anion Gap 6 (7-16); BUN/Creatinine Ratio 12 Ratio (12-20); Blood Urea Nitrogen 12 mg/dL (9-23); Calcium 9.0 mg/dL (8.3-10.6); Carbon Dioxide 28.2 mMol/L (20.0-31.0); Chloride 107 mMol/L (98-107); Creatinine (Component) 1.0 mg/dL (0.6-1.3); Estimated Creatinine Clearance 123.9 mL/min (>60); Glucose 136 mg/dL (74-106); Osmolality,Calculated 282 (275-295); Potassium 4.4 mMol/L (3.4-5.1); Sodium 141 mMol/L (136-145); eGFR > 60 See Note
[2025-05-06 11:43] LABS: INR 1.0 (0.9-1.3); Partial Thromboplastin Time 28.2 Seconds (22.0-36.0); Prothrombin Time 10.9 Seconds (9.0-12.2)
[2025-05-07] VITALS (16 sets, daily range): BP systolic 139–189; BP diastolic 79–107; PULSE 63–95; RESP 11–20; TEMP 36.2–36.8; O2SAT 96–98; BMI 59.6
[2025-05-07] MEDS: hydrALAZINE INJ 20 MG/ML VIAL 10 MG IVP (10:51)
--- NOTE | 2025-05-07 14:48 | PC.NURSE ---
1240 patient is awake, alert, breathing unlabored, s/p LHC by , dressing to right groin dry with no active bleeding or hematoma, report received from Yo LEE 1322 report given to Yo ELE, patient voided and ate small amount of food tray, no nausea or vomiting
--- NOTE | 2025-05-08 15:51 | ESOP_ITS ---
RE: PORSCHE ANTHONY : 1970 PROCEDURES PERFORMED: 1. Diagnostic left heart cardiac catheterization, selective coronary angiogram, left ventricular angiogram, CPT 35645. 2. Ultrasound guidance access of the right femoral artery. 3. Iliofemoral angiogram. 4. Angio-Seal deployment. 5. Conscious sedation 1-hour duration. DIAGNOSES: Abnormal stress test, angina pectoris, and family history of heart disease. HISTORY AND INDICATIONS: The patient is a 54-year-old male with a past medical history of hypertension, multiple risk factors with coronary artery disease, anginal type discomfort, and an abnormal stress test. A coronary angiogram was recommended. The patient is a candidate for intervention and revascularization. DESCRIPTION OF PROCEDURE: The patient was brought to cardiac catheterization laboratory, where he was given conscious sedation of 2 mg of Versed and 50 mcg of fentanyl for sedation. The right radial artery was initially approached, but because of the depth of the vessel, we could not advance the wire, hence we switched to the right femoral artery. The right femoral artery was accessed by ultrasound guidance using a micropuncture technique, and a 5-Albanian sheath and a subsequently 6-[place]ian sheath were inserted. Selective right and left coronary angiogram was performed using a right FR4 and FL5 diagnostic catheter. Subsequently, a 5- [place] pigtail catheter was used to perform a left ventricular angiogram and left heart catheterization. Subsequently, an iliofemoral angiogram was performed. An Angio-Seal was deployed, but it was not deployed successfully. Manual compression was obtained. There were no complications during the procedure. Cardiac catheterization as follows: HEMODYNAMICS: Left ventricular pressure is 118/10. Aortic root is 118/70. No gradient across the aortic valve. The left ventricular angiogram showed normal left ventricular wall motion. Ejection fraction is 70%. Coronary angiogram shows the following findings: The right coronary artery is large and dominant and appeared normal. Left coronary system: Left main coronary artery is normal. Left anterior descending artery appears normal. The left circumflex artery is normal. The iliofemoral angiogram showed evidence of a normal femoral artery with no significant disease. SUMMARY OF FINDINGS AND SUGGESTIONS: 1. Normal nonobstructive epicardial coronary artery disease. 2. Normal left ventricular systolic function. Ejection fraction is 65%. RECOMMENDATIONS: The patient was reassured about the absence of significant obstructive coronary artery disease. Prognosis is excellent. DT: 15:24:21 TT: 15:49:00 Ref: [id number] - TID: [id number]
== END 2025-05-07 14:55 | disposition home or self-care (01) ==
PROVIDERS: PCP Family Medicine; Referring Provider Internal Medicine Cardiovascular Disease; Visit Provider Internal Medicine Cardiovascular Disease
PROC: (CPT 93458; principal; 2025-05-07 08:30)
DX: I25.119 Atherosclerotic heart disease of native coronary artery with unspecified angina pectoris (principal); Z82.49 Family history of ischemic heart disease and other diseases of the circulatory system; Z01.810 Encounter for preprocedural cardiovascular examination; I10 Essential (primary) hypertension; E11.9 Type 2 diabetes mellitus without complications; R06.02 Shortness of breath
CPT/HCPCS: 93458; G0278; 36415; 80048; 85025; 85610; 85730; 93005; 99152; 99153; A4649; C1725; C1760; C1769; C1894; J0360; J0461; J1643; J2250; J2310; J2371; J3010; J3490; Q9967